=== PATIENT | male | born 1950 | race Caucasian/White ===

== ENCOUNTER 2017-04-21 09:00 | Day surgery (SDC) | payer BC, MEDICARE ==
[~2017-04-21 09:00] MED LIST: Lactated Ringers 1,000 ML IV SCH; Sodium Chloride 0.9% 5 ML Syringe FLUSH PRN
[2017-04-21] MEDS ORDERED: Propofol 200 MG/20 ML SDV ONE (09:11)
[2017-04-21] MEDS ORDERED: EPINEPHrine 1:10,000 1 MG/10 ML Syringe ONE (10:00)
[2017-04-21] MEDS ORDERED: Glycopyrrolate 0.2 MG/ML 5 ML MDV IV ONE (11:02)
[2017-04-21] MEDS ORDERED: Propofol 200 MG/20 ML SDV IV ONE (11:02)
--- NOTE | 2017-04-21 11:39 | PCM.OPNOTE ---
- General Post-Op/Procedure Note Date of Surgery/Procedure: 04/21/17 Operative Procedure(s): Colonoscopy Findings: Normal colonoscopy Pre Op Diagnosis: Rectal bleeding Post-Op Diagnosis: Same Anesthesia Technique: MAC Primary Surgeon: Adan Yañez Complications: None Condition: Good Free Text/Narrative:: INFORMED CONSENT: Patient is here today for elective colonoscopy. All aspects of this procedure have been discussed with the patient. All possible complications also, including possibility of perforation, infection, pain, bleeding and unknown complications. In the event of perforation patient may need to have abdominal exploration, colon resection, colostomy and even was discussed. Anesthetic complications were handled by anesthesia department. The patient understands fully well. Patient did not have any further questions for me at the end of my interview. The patient wishes for me to proceed. PREOPERATIVE DIAGNOSIS/INDICATIONS: [rectal bleeding Hemoccult-positive stool] POSTOPERATIVE DIAGNOSIS: [normal colonoscopy] INSTRUMENT USED: Olympus videocolonoscope. ASA CLASSIFICATION: [2] ANESTHESIA: Continuous EKG, oximetry and intermittent blood pressure and respiratory monitoring were performed throughout the procedure. IV Versed and Fentanyl were administered. PROCEDURE PERFORMED: Colonoscopy POSITIONS OF PATIENT: Left lateral. RECTUM: Normal. SIGMOID COLON: Normal. DESCENDING COLON: Normal. SPLENIC FLEXURE: Normal. TRANSVERSE COLON: Normal. HEPATIC FLEXURE: Normal. ASCENDING COLON: Normal. CECUM: Normal. ILEOCECAL VALVE: Normal. BIOPSY: None. TOLERANCE: Excellent. COMPLICATIONS: None.
[2017-04-21 14:09] VITALS: BP 176/80
== END 2017-04-21 13:30 | disposition home or self-care (01) ==
LOC: KA.SDS 09:00
PROVIDERS: ATTEND Family Medicine
DX: Z12.11 Encounter for screening for malignant neoplasm of colon (principal); Z86.010 Personal history of colon polyps; Z80.0 Family history of malignant neoplasm of digestive organs; K62.5 Hemorrhage of anus and rectum; I10 Essential (primary) hypertension; E78.2 Mixed hyperlipidemia; E66.9 Obesity, unspecified; Z68.30 Body mass index [BMI] 30.0-30.9, adult; N40.1 Benign prostatic hyperplasia with lower urinary tract symptoms; Z79.82 Long term (current) use of aspirin; Z79.899 Other long term (current) drug therapy
CPT/HCPCS: 45378; J2704; J7120; J3490

== ENCOUNTER 2022-07-08 08:32 | Day surgery (SDC) | payer MEDICARE, BC ==
[~2022-07-08 08:32] MED LIST changes: -Lactated Ringers 1,000 ML IV SCH; +Sodium Chloride 0.9% 10 ML Syringe FLUSH PRN; -Sodium Chloride 0.9% 5 ML Syringe FLUSH PRN
[2022-07-08] MEDS: Lactated Ringers 1,000 ML IV SCH (08:56)
[2022-07-08] MEDS ORDERED: Midazolam 1 MG/ML 2 ML SDV ONE (09:16)
[2022-07-08] MEDS ORDERED: Propofol 200 MG/20 ML SDV ONE (09:16)
== END 2022-07-08 11:10 | disposition home or self-care (01) ==
LOC: KA.SDS 08:32 → MERGE 08:32 → KA.SDS 11:10
PROVIDERS: ATTEND Family Medicine
DX: Z12.11 Encounter for screening for malignant neoplasm of colon (principal); D12.2 Benign neoplasm of ascending colon; K62.1 Rectal polyp; K64.4 Residual hemorrhoidal skin tags; K64.8 Other hemorrhoids; I10 Essential (primary) hypertension; N40.1 Benign prostatic hyperplasia with lower urinary tract symptoms; R35.0 Frequency of micturition; K21.9 Gastro-esophageal reflux disease without esophagitis; D50.9 Iron deficiency anemia, unspecified; D61.818 Other pancytopenia; E78.2 Mixed hyperlipidemia; E66.9 Obesity, unspecified; G89.29 Other chronic pain; M54.42 Lumbago with sciatica, left side; G43.109 Migraine with aura, not intractable, without status migrainosus; Z80.0 Family history of malignant neoplasm of digestive organs; Z79.899 Other long term (current) drug therapy; Z87.891 Personal history of nicotine dependence; Z68.32 Body mass index [BMI] 32.0-32.9, adult
CPT/HCPCS: 00812; J2250; J2704; J7120

== ENCOUNTER 2024-10-01 14:40 | Emergency (ER) | payer BC, MEDICARE ==
[2024-10-01 15:07] LABS: BASOPHILS ABSOLUTE AUTO 0.01 10^3/uL (0.00-0.10); BASOPHILS PERCENT AUTO 0.3 % (0.0-1.0); EOSINOPHILS ABSOLUTE AUTO 0.04 10^3/uL (0.10-0.30); EOSINOPHILS PERCENT AUTO 1.2 % (1.0-3.0); HEMATOCRIT 34.6 % (40.0-52.0); HEMOGLOBIN 11.9 g/dL (13.0-17.0); LYMPHOCYTES ABSOLUTE AUTO 0.77 10^3/uL (1.00-4.00); LYMPHOCYTES PERCENT AUTO 23.7 % (20.0-40.0); MEAN CORPUSCULAR HGB CONC 34.4 g/dL (32.0-36.0); MEAN CORPUSCULAR VOLUME 87.2 fL (82.0-92.0); MEAN PLATELET VOLUME 9.3 fL (7.4-10.4); MONOCYTES ABSOLUTE AUTO 0.31 10^3/uL (0.10-0.80); MONOCYTES PERCENT AUTO 9.5 % (2.0-8.0); NEUTROPHILS ABSOLUTE AUTO 2.12 10^3/uL (2.50-7.00); NEUTROPHILS PERCENT AUTO 65.3 % (50.0-70.0); PLATELET COUNT,PLT 148 10^3/uL (150-400); RED BLOOD CELL COUNT 3.97 10^6/uL (4.50-6.00); RED CELL DISTRIBUTION WIDTH 12.6 % (11.5-14.5); WHITE BLOOD CELL COUNT,WBC 3.25 10^3/uL (5.00-10.00)
[2024-10-01 15:24] LABS: ALANINE AMINOTRANSFERASE,ALT 35 U/L (14-63); ALBUMIN 3.66 g/dL (3.40-5.00); ALKALINE PHOSPHATASE 84 U/L (46-116); ANION GAP 11.5 mmol/L (5-15); ASPARTATE AMNIOTRANSFERASE,AST 26 U/L (15-37); BILIRUBIN TOTAL 0.9 mg/dL (0.2-1.0); BLOOD UREA NITROGEN,BUN 10 mg/dL (7-18); CALCIUM 8.4 mg/dL (8.7-10.3); CARBON DIOXIDE,CO2 26.4 mmol/L (21.0-32.0); CHLORIDE,CL 102 mmol/L (98-107); CREATININE 0.71 mg/dL (0.51-1.17); GLUCOSE RANDOM 92 mg/dL (70-140); POTASSIUM,K 3.9 mmol/L (3.5-5.1); SODIUM,NA 136 mmol/L (136-145)
[2024-10-01 15:25] LABS: ESTIMATED GFR 97 mL/min (>=60)
== END 2024-10-01 19:50 | disposition home or self-care (01) ==
LOC: KA.ED 14:40
DX: I44.0 Atrioventricular block, first degree (principal); I10 Essential (primary) hypertension; Z79.899 Other long term (current) drug therapy; Z79.82 Long term (current) use of aspirin
CPT/HCPCS: 36415; 71045; 80053; 84484; 85025; 99285